=== PATIENT | male | born 1940 | race Caucasian/White ===

== ENCOUNTER 2017-06-01 06:46 | Day surgery (SDC) | payer OTHER ==
[~2017-06-01] VITALS: Ht 177.8 cm; Wt 96.8 kg
[~2017-06-01 06:46] MED LIST: ATOR40TA PO; BUSP10 PO; HYDR-3580 PO; HYDR12.56 PO; MULTCAP14 PO; PRIL20CA PO; TAMS0.4C67 PO
[2017-06-01] MEDS ORDERED: IOHEXOL 180 MG/ML 20 ML VIAL (for RAD DIAG) IT ONE (06:47)
[2017-06-01 07:06] VITALS: BP 154/88; PULSE 75; RESP 20; TEMP 97.7; O2SAT 94
[2017-06-01] MEDS ORDERED: PRIL20TA2 (07:48)
[2017-06-01] MEDS ORDERED: MELO-1 PO (07:48)
[2017-06-01] MEDS ORDERED: FURO20TA PO (07:48)
[2017-06-01] MEDS ORDERED: OMEP20TA PO (07:48)
[2017-06-01] MEDS ORDERED: THERH PO (07:48)
[2017-06-01] MEDS ORDERED: HYDR-2376 PO (07:48)
[2017-06-01] MEDS ORDERED: BUSP5TAB PO (07:48)
[2017-06-01] MEDS ORDERED: TRAM50TA PO (07:48)
[2017-06-01] MEDS ORDERED: TAMS0.4C4 PO (07:48)
[2017-06-01] MEDS ORDERED: METF500T PO (07:48)
[2017-06-01] MEDS ORDERED: GABA300C5 PO (07:48)
[2017-06-01] MEDS ORDERED: ATOR40TA16 PO (07:48)
[2017-06-01] MEDS ORDERED: POTA10CA PO (07:48)
[2017-06-01 07:51] LABS: AUTOMATED NEUTROPHIL # 2.7 TH/MM3 (1.8-7.7); BASOPHIL % 0.5 % (0.0-2.0); EOSINOPHIL # 0.2 TH/MM3 (0-0.4); HEMO FLAGS DIFF FINAL; LYMPHOCYTE # 0.8 TH/MM3 (1.0-4.8); MEAN CELL VOLUME 88.4 FL (80.0-100.0); MEAN CORPUSCULAR HEMOGLOBIN 30.5 PG (27.0-34.0); MEAN CORPUSCULAR HGB CONC 34.5 % (32.0-36.0); NEUT % 66.5 % (16.0-70.0); PLATELET COUNT 223 TH/MM3 (150-450); RED BLOOD COUNT 4.53 MIL/MM3 (4.50-5.90); RED CELL DISTRIBUTION WIDTH 13.4 % (11.6-17.2); WHITE BLOOD COUNT 4.1 TH/MM3 (4.0-11.0)
[2017-06-01 07:59] LABS: APTT (PATIENT) 25.9 SEC (24.3-30.1); PROTHROMBIN TIME - PATIENT 10.5 SEC (9.8-11.6)
[2017-06-01] MEDS ORDERED: LACTATED RINGER'S 1000 ML INJ 1,000 ML IV SCH (08:00)
[2017-06-01] MEDS ORDERED: DIAZEPAM 5 MG TAB PO SCH (08:00)
[2017-06-01 08:24] LABS: BICARBONATE 26.2 MEQ/L (21.0-32.0)
[2017-06-01 08:32] LABS: POTASSIUM 3.9 MEQ/L (3.5-5.1)
--- NOTE | 2017-06-01 09:21 | PD.RAD ---
Post Procedure Progress Note Pre Procedure Diagnosis: (1) Low back pain radiating down leg Post Procedure Diagnosis: (1) Low back pain radiating down leg Procedure Date: Jun 01, 2017 Supervising Radiologist: Asad Reich Estimated blood loss: none Anesthesia: Local Plan of Activity Patient to Unit: [facility] Patient Condition: Good Additional Comments: LP completed Single puncture at L4. Clear CSF returned CT scan pending. Full dictated report to follow in PACS See PACS Report for procedural detail/treatment Asad Reich MD Jun 01, 2017 09:21
[2017-06-01 09:55] VITALS: BP 169/86; PULSE 65; RESP 16; TEMP 97.8; O2SAT 95
--- NOTE | 2017-06-01 10:16 | RADRPT ---
EXAM DATE/TIME: 06/01/2017 09:46 [facility] COMPARISON: No previous studies available for comparison. INDICATIONS : Post-myelogram evaluation of spinal stenosis. RADIATION DOSE: 39.12 CTDIvol (mGy) MEDICAL HISTORY : Cardiovascular disease. Carcinoma, prostate. SURGICAL HISTORY : Pacemaker. ENCOUNTER: Initial ACUITY: 1 day PAIN SCALE: 2/10 LOCATION: lower back. TECHNIQUE: Volumetric scanning of the lumbar spine was performed. Multiplanar reconstructions in the sagittal, coronal and oblique axial planes were performed. Using automated exposure control and adjustment of the mA and/or kV according to patient size, radiation dose was kept as low as reasonably achievable t o obtain optimal diagnostic quality images. DICOM format image data is available electronically for review and comparison. FINDINGS: VERTEBRAE: Normal vertebral body height. ALIGNMENT: No evidence of subluxation. T12-L1: The thecal sac has a normal diameter. No evidence of disc bulge or protrusion. The neural foramina are patent bilaterally. L1-L2: There is a minimal retrolisthesis and a mild disc protrusion. There is mild encroachment on the later al recesses and mild bilateral foraminal stenosis. No significant central canal stenosis. L2-L3: Moderate to severe degenerative disc disease with osteophytic ridging and facet arthropathy. No centr al canal stenosis. Mild lateral recess and foraminal stenosis bilaterally. L3-L4: Broad-based disc protrusion and facet arthropathy results in a severe central canal and lateral reces s stenosis and moderate bilateral foraminal stenosis. L4-L5: Mild disc protrusion and facet arthropathy with moderate central canal stenosis and foraminal stenosi s. L5-S1: Mild disc bulge without significant stenosis. CONCLUSION: 1. At L3-4 there is a broad-based disc protrusion and facet arthropathy with severe central canal and lateral recess stenosis and moderate foraminal stenosis bilaterally. 2. At L4-5 there is a mild disc protrusion and mild to moderate central canal and foraminal stenosis. 3. Moderate to severe degenerative disc disease, especially at L2-3 and L1-2 with minimal retrolisthe sis at these levels. Deshawn Delgado MD on June 01, 2017 at 10:03 Board Certified Radiologist. This report was verified electronically.
[2017-06-01 11:00] VITALS: BP 128/77; PULSE 84; RESP 18; O2SAT 94
--- NOTE | 2017-06-01 12:34 | RADRPT ---
EXAM DATE/TIME: 06/01/2017 09:15 [facility] COMPARISON: CT LUMBAR SPINE W/O CONTRAST, June 01, 2017, 9:46. INDICATIONS : Patient presents with lower back pain in need of lumbar myelogram to assess spinal stenosis. MEDICAL HISTORY : Spinal stenosis GERD Arthritis SURGICAL HISTORY : Pacemaker Right rotator cuff sx Right knee sx ENCOUNTER: Initial ACUITY: > 1 year PAIN SCORE: 10/10 LOCATION: Lower back pain which radiates down right leg. LUMBAR PUNCTURE TIME: 09:09 hours FLUORO TIME: 2.25 minutes IMAGE SERIES: 0 CONTRAST: 20 cc Omnipaque (iohexol) 180 ACCESS LEVEL: L3-4 PROCEDURE : 1. Fluoroscopic guided lumbar puncture. 2. Lumbar myelogram. The risks, benefits and alternatives to the procedure were explained and verbal and written consent w as obtained. The site was prepped in sterile fashion. Full sterile technique was used, including ca p, mask, sterile gloves and gown and a large sterile sheet. Hand hygiene and 2% chlorhexidine and/or betadine/alcohol prep was utilized per protocol for cutaneous antisepsis. The skin and subcutaneous tissues were infiltrated with local anesthetic solution. With fluoroscopic guidance the lumbar thecal sac was punctured at level above and a diagnostic quanti ty of contrast is present in the subarachnoid space. Radiographs were obtained of the lumbar spine. The patient tolerated procedure well and there were no complications. CT scan is to be performed for further evaluation. CONCLUSION: Uncomplicated lumbar myelogram as above. CT scan is to be performed for further evaluation. Asad Reich MD on June 01, 2017 at 12:31 Board Certified Radiologist. This report was verified electronically.
== END 2017-06-01 11:17 | disposition home or self-care (01) ==
LOC: HROP 06:46 → HRIP 06:47 → HROP 11:17
PROVIDERS: ATTEND Radiology Body Imaging
DX: M48.06 Spinal stenosis, lumbar region (principal); M51.26 Other intervertebral disc displacement, lumbar region; I25.10 Atherosclerotic heart disease of native coronary artery without angina pectoris; K21.9 Gastro-esophageal reflux disease without esophagitis; Z95.0 Presence of cardiac pacemaker
CPT/HCPCS: 62304; 72131; 80048; 85025; 85610; 85730; J7120; Q9965

== ENCOUNTER 2017-07-21 04:46 | Observation (INO) | payer MEDICARE, OTHER ==
[2017-07-21] VITALS (14 sets, daily range): BP systolic 102–197; BP diastolic 52–91; PULSE 70–98; RESP 16–24; TEMP 97.8–99.5; O2SAT 95–100
[~2017-07-21] VITALS: Ht 177.8 cm; Wt 99.0 kg
[~2017-07-21 04:46] MED LIST changes: +ADJUSTABLE COMM1 MIS; -ATOR40TA PO; +ATOR40TA16 PO; -BUSP10 PO; +BUSP15TA PO; +FURO20TA PO; +HYDR-2376 PO; -HYDR-3580 PO; +HYDR-3583 PO; -HYDR12.56 PO; +MELO15TA20 PO; +METF500T PO; -MULTCAP14 PO; +OMEP20TA93 PO; +POTA10CA PO; -PRIL20CA PO; +TAMS0.4C4 PO; -TAMS0.4C67 PO; +THERH PO; +WALKER WHEELS/F1 MIS
[2017-07-21] MEDS: LIDOCAINE 2% JELLY 30 ML TUBE TOPICAL ONE ×2 (05:15→06:49)
[2017-07-21] MEDS ORDERED: ONDANSETRON HCL 4 MG/2 ML VIAL IV PUSH ONE (05:30)
[2017-07-21] MEDS ORDERED: HYDROmorphone HCL PF 1 MG/ML VIAL IV PUSH ONE ×2 (05:30→06:30)
[2017-07-21 05:42] LABS: BLOOD, URINE SMALL (NEG); GLUCOSE,URINE 70 mg/dL (NEG); KETONE, URINE 40 mg/dL (NEG); NITRITE,URINE NEG (NEG); PH, URINE 7.5 (5.0-8.5); SQUAMOUS EPITHELIAL CELL URINE <1 /hpf (0-5); URINE COLOR YELLOW (YELLW/STRAW)
[2017-07-21 05:43] LABS: AUTOMATED NEUTROPHIL # 6.3 TH/MM3 (1.8-7.7); BASOPHIL % 0.1 % (0.0-2.0); EOSINOPHIL % 0.4 % (0.0-4.0); HEMATOCRIT 27.8 % (39.0-51.0); HEMO FLAGS DIFF FINAL; LYMPH % 7.7 % (9.0-44.0); LYMPHOCYTE # 0.6 TH/MM3 (1.0-4.8); MEAN CELL VOLUME 88.7 FL (80.0-100.0); MEAN CORPUSCULAR HEMOGLOBIN 31.9 PG (27.0-34.0); MEAN CORPUSCULAR HGB CONC 35.9 % (32.0-36.0); MONO % 8.7 % (0.0-8.0); NEUT % 83.1 % (16.0-70.0); PLATELET COUNT 187 TH/MM3 (150-450); RED BLOOD COUNT 3.14 MIL/MM3 (4.50-5.90); RED CELL DISTRIBUTION WIDTH 13.4 % (11.6-17.2); WHITE BLOOD COUNT 7.6 TH/MM3 (4.0-11.0)
[2017-07-21 05:43] LABS: COMMENT (UR) CULT NOT INDICATED; CULTURE IF INDICATED CULT NOT INDICATED
--- NOTE | 2017-07-21 05:43 | PD ---
HPI Chief Complaint: Complaint Time Seen by Provider: 05:12 Travel History International Travel<30 days: No Contact w/Intl Traveler<30days: No Traveled to known affect area: No History of Present Illness HPI 77-year-old male complains of severe back pain with pain radiation down both legs. Patient has history of low back pain with pain radiation down the legs, lumbar spine instability, lumbar spine stenosis. Patient status post laminectomy L2-3 and L3 4, subtotal for septic resection, posterior lumbar fusion, posterior lateral interbody fusion L2-3, L3 4 and bone graft. Patient has surgery on July 18 and discharged July 20. Patient has been taking hydrocodone 7.5 for pain. Patient states that he started having severe pain to the low back with radiation to both legs since last night. Patient states that he has intermittent urinary retention since last night also. Patient denies any dysuria or frequency. Patient states that the pain radiated to the groin also. Patient denies any fever chills. Patient denies any chest pain or shortness of breath. Patient denies abdominal pain. Patient denies any focal weakness or numbness to lower extremity. Patient states that the pain is worse with movement. On a scale of 1-10 the pain is a 10. PFSH Past Medical History Arthritis: Yes Heart Rhythm Problems: No Cancer: Yes (PROSTATE-radiation only) Cardiovascular Problems: Yes (PACEMAKER MEDTRONIC) High Cholesterol: Yes Chest Pain: No Congestive Heart Failure: No Diabetes: Yes Patient Takes Glucophage: No Endocrine: No Gastrointestinal Disorders: Yes (ACID REFLUX) GERD: Yes Genitourinary: Yes (enlarged prostate) Hepatitis: No Hiatal Hernia: No Immune Disorder: No Musculoskeletal: Yes (ARTHRITIS, spinal stenosis) Neurologic: No Psychiatric: Yes (anxiety) Reproductive: No Respiratory: No Immunizations Current: Yes Radiation Therapy: Yes Thyroid Disease: No ?: Not Past Surgical History Abdominal Surgery: No AICD: No Cardiac Surgery: Yes (PACEMAKER) Ear Surgery: No Endocrine Surgery: No Eye Surgery: No Genitourinary Surgery: No Gynecologic Surgery: No Joint Replacement: Yes (L shoulder) Neurologic Surgery: Yes (LAMINECTOMY) Oral Surgery: Yes (tonsillectomy) Pacemaker: Yes (MEDTRONIC) Thoracic Surgery: No Other Surgery: Yes Social History Alcohol Use: Yes (2 drinks a night) Tobacco Use: No Substance Use: No Allergies-Medications (Allergen,Severity, Reaction): Coded Allergies: No Known Allergies (Verified Allergy, Unknown, 07/21/17) Reported Meds & Prescriptions Reported Meds & Active Scripts Active Hydrocodone-Acetaminophen 10-325 mg Tab 1 Tab PO Q4H PRN 7 Days Adjustable Commode 3-in-1 (Device) 1 Mis Mis Ea .ROUTE DIRECTED Walker with Front Wheels (Device) 1 Mis Mis Ea .ROUTE DIRECTED Reported Buspirone (Buspirone HCl) 15 Mg Tab 15 Mg PO BID Meloxicam 15 Mg Tab 15 Mg PO DAILY Therems-H (Multivitamin Hematinic Therapeutic) 1 Tab 1 Tab PO DAILY Metformin (Metformin HCl) 500 Mg Tab 500 Mg PO TIDPC With meals Furosemide 20 Mg Tab 20 Mg PO DAILY Potassium Chloride ER (Potassium Chloride) 10 Meq Cap 10 Meq PO DAILY Omeprazole 20 Mg Tab 20 Mg PO DAILY Atorvastatin (Atorvastatin Calcium) 40 Mg Tab 40 Mg PO HS Tamsulosin (Tamsulosin HCl) 0.4 Mg Cap 0.4 Mg PO BID Review of Systems General / Constitutional: No: Fever Eyes: No: Visual changes HENT: No: Headaches Cardiovascular: No: Chest Pain or Discomfort Respiratory: No: Shortness of Breath Gastrointestinal: No: Abdominal Pain Genitourinary: No: Dysuria Musculoskeletal: No: Pain Skin: No Rash Neurologic: No: Weakness Psychiatric: No: Depression Endocrine: No: Polydipsia Hematologic/Lymphatic: No: Easy Bruising Physical Exam Narrative GENERAL: Well-nourished, well-developed patient. SKIN: Focused skin assessment warm/dry. HEAD: Normocephalic. EYES: No scleral icterus. No injection or drainage. NECK: Supple, trachea midline. No JVD or lymphadenopathy. CARDIOVASCULAR: Regular rate and rhythm without murmurs, gallops, or rubs. RESPIRATORY: Breath sounds equal bilaterally. No accessory muscle use. GASTROINTESTINAL: Abdomen soft, non-tender, nondistended. MUSCULOSKELETAL: No cyanosis, or edema. BACK: Moderate tenderness on palpation lumbar area, without obvious deformity. No CVA tenderness. Sutures in place. The wound is without bleeding. Neurologic exam: Patient can move all extremity well. Patient has increasing low back pain with flexion of both hips. Data Data Last Documented VS Vital Signs Date Time Temp Pulse Resp B/P (MAP) Pulse Ox O2 Delivery O2 Flow Rate FiO2 07/21/17 07:02 70 20 178/82 (114) 99 Room Air 07/21/17 04:48 97.8 Orders Orders Urinary Catheter Insert/Apply (07/21/17 05:13) Lidocaine 2% Jelly (Xylocaine 2% Jelly) (07/21/17 05:15) Hydromorphone Pf Inj (Dilaudid Pf Inj) (07/21/17 05:30) Ondansetron Inj (Zofran Inj) (07/21/17 05:30) Complete Blood Count With Diff (07/21/17 05:26) Basic Metabolic Panel (Bmp) (07/21/17 05:26) Prothrombin Time / Inr (Pt) (07/21/17 05:26) Urinalysis - C+S If Indicated (07/21/17 05:26) Thyroid Stimulating Hormone (07/21/17 05:26) Iv Access Insert/Monitor (07/21/17 05:26) Ecg Monitoring (07/21/17 05:26) Oximetry (07/21/17 05:26) Hydromorphone Pf Inj (Dilaudid Pf Inj) (07/21/17 06:30) Potassium Chloride (Kcl) (07/21/17 07:00) Potassium Chlor 20 Meq Premix (Kcl 20 Me (07/21/17 07:00) Admit Order (Ed Use Only) (07/21/17 07:19) Labs Laboratory Tests Test 07/21/17 05:10 07/21/17 05:20 Urine Color YELLOW Urine Turbidity CLEAR Urine pH 7.5 Urine Specific [place] 1.011 Urine Protein TRACE mg/dL Urine Glucose (UA) 70 mg/dL Urine Ketones 40 mg/dL Urine Occult Blood SMALL Urine Nitrite NEG Urine Bilirubin NEG Urine Urobilinogen LESS THAN 2.0 MG/DL Urine Leukocyte Esterase NEG Urine RBC 35 /hpf Urine WBC 1 /hpf Urine Squamous Epithelial Cells <1 /hpf Microscopic Urinalysis Comment CULT NOT INDICATED White Blood Count 7.6 TH/MM3 Red Blood Count 3.14 MIL/MM3 Hemoglobin 10.0 GM/DL Hematocrit 27.8 % Mean Corpuscular Volume 88.7 FL Mean Corpuscular Hemoglobin 31.9 PG Mean Corpuscular Hemoglobin Concent 35.9 % Red Cell Distribution Width 13.4 % Platelet Count 187 TH/MM3 Mean Platelet Volume 7.2 FL Neutrophils (%) (Auto) 83.1 % Lymphocytes (%) (Auto) 7.7 % Monocytes (%) (Auto) 8.7 % Eosinophils (%) (Auto) 0.4 % Basophils (%) (Auto) 0.1 % Neutrophils # (Auto) 6.3 TH/MM3 Lymphocytes # (Auto) 0.6 TH/MM3 Monocytes # (Auto) 0.7 TH/MM3 Eosinophils # (Auto) 0.0 TH/MM3 Basophils # (Auto) 0.0 TH/MM3 CBC Comment DIFF FINAL Differential Comment Prothrombin Time 10.4 SEC Prothromb Time International Ratio 0.9 RATIO Blood Urea Nitrogen 8 MG/DL Creatinine 0.68 MG/DL Random Glucose 139 MG/DL Calcium Level 8.1 MG/DL Sodium Level 136 MEQ/L Potassium Level 2.9 MEQ/L Chloride Level 101 MEQ/L Carbon Dioxide Level 25.1 MEQ/L Anion Gap 10 MEQ/L Estimat Glomerular Filtration Rate 112 ML/MIN Thyroid Stimulating Hormone 3rd Gen 1.190 uIU/ML MDM Medical Decision Making Medical Screen Exam Complete: Yes Emergency Medical Condition: Yes Interpretation(s) 6:42 AM. CBC WBC 7.6. Hemoglobin 10.0, hematocrit 27.8. 83 neutrophil. Potassium 2.9. Differential Diagnosis Differential diagnosis including acute exacerbation of back pain status post back surgery. Narrative Course 77-year-old male with acute exacerbation of low back pain radiation to legs. Status post laminectomy. Dilaudid 1 mg IV. Zofran 4 mg IV. Bladder scan done and shows urine volume around 140 cc. Romero catheter inserted. Repeated Dilaudid 1 mg IV. KCl 40 mEq by mouth given. KCl 20 mEq IV given. Diagnosis Primary Impression: Intractable back pain Additional Impressions: Urinary retention Status post laminectomy Admitting Information Admitting Physician Requests: Observation Jamin Eduardo MD Jul 21, 2017 05:43
[2017-07-21 05:47] LABS: INTERNATIONAL NORMALIZED RATIO 0.9 RATIO; PROTHROMBIN TIME - PATIENT 10.4 SEC (9.8-11.6)
[2017-07-21 06:22] LABS: BICARBONATE 25.1 MEQ/L (21.0-32.0); POTASSIUM 2.9 MEQ/L (3.5-5.1)
[2017-07-21] MEDS ORDERED: POTASSIUM CHLOR 20 MEQ PREMIX 100 ML IV ONE (07:00)
[2017-07-21] MEDS ORDERED: POTASSIUM CHLORIDE 20 MEQ CONTROLLED RELEASE TAB PO ONE (07:00)
[2017-07-21] MEDS ORDERED: ENALAPRILAT 1.25 MG/ML VIAL IV PUSH PRN (07:45)
[2017-07-21] MEDS ORDERED: BISACODYL 10 MG SUPP RECTAL PRN (07:45)
[2017-07-21] MEDS ORDERED: MORPHINE SULFATE 4 MG/ML INJ IV PUSH PRN (07:45)
[2017-07-21] MEDS ORDERED: MAGNESIUM HYDROXIDE SUSP 30 ML CUP PO PRN (07:45)
[2017-07-21] MEDS ORDERED: SENNOSIDES 8.6 MG TAB PO PRN (07:45)
[2017-07-21] MEDS ORDERED: NALOXONE HCL 0.4 MG/ML AMP IV PUSH PRN (07:45)
[2017-07-21] MEDS ORDERED: hydrALAZINE HCL 20 MG/ML VIAL IV PUSH ONE (07:45)
[2017-07-21] MEDS ORDERED: ONDANSETRON HCL 4 MG/2 ML VIAL IVP PRN ×2 (07:45)
[2017-07-21] MEDS ORDERED: ACETAMINOPHEN 325 MG TAB PO PRN ×2 (07:45)
[2017-07-21] MEDS ORDERED: cloNIDine HCL 0.1 MG TAB PO PRN (07:45)
[2017-07-21] MEDS ORDERED: ACETAMINOPHEN/HYDROcodone 325 MG/7.5 MG TAB PO PRN (07:45)
[2017-07-21] MEDS ORDERED: DEXTROSE 50% IN WATER 50 ML VIAL(D50) IV PUSH PRN (08:00)
[2017-07-21] MEDS ORDERED: GLUCAGON 1 MG/ML VIAL OTHER PRN (08:00)
[2017-07-21] MEDS: INSULIN ASPART SUPPLEMENTAL SCALE SQ SCH ×4 (08:00→21:56)
[2017-07-21] MEDS: HYDROmorphone HCL PF 1 MG/ML VIAL IV PUSH PRN ×4 (08:07→21:06)
[2017-07-21] MEDS ORDERED: LORazepam 1 MG TAB PO PRN (08:15)
[2017-07-21] MEDS ORDERED: FLUMAZENIL 0.5 MG/5 ML VIAL IV PUSH PRN (08:15)
[2017-07-21] MEDS ORDERED: LORazepam 2 MG/ML VIAL IV PUSH PRN ×4 (08:15)
[2017-07-21] MEDS ORDERED: LORazepam 2 MG TAB PO PRN (08:15)
[2017-07-21] MEDS: busPIRone HCL 5 MG TAB PO SCH ×2 (08:25→21:53)
[2017-07-21] MEDS: FUROSEMIDE 20 MG TAB PO SCH (08:26)
[2017-07-21] MEDS: DOCUSATE SODIUM 50 MG/SENNA 8.6 MG TAB PO SCH ×2 (08:33→21:17)
[2017-07-21] MEDS: PANTOPRAZOLE SOD 20 MG DELAYED RELEASE TAB PO SCH (08:33)
[2017-07-21] MEDS: FOLIC ACID 1 MG TAB PO SCH (09:23)
[2017-07-21] MEDS: TAMSULOSIN HCL 0.4 MG CAP PO SCH ×2 (09:23→21:16)
[2017-07-21] MEDS: SODIUM CHLORIDE 0.9% FLUSH 10 ML FLUSH IV FLUSH SCH ×2 (09:23→21:15)
[2017-07-21] MEDS: MULTIVITAMIN HEMATINIC THERAPEUTIC TAB PO SCH (09:23)
[2017-07-21] MEDS: THIAMINE HCL 100 MG TAB PO SCH (09:24)
[2017-07-21] MEDS: MULTIVITAMINS/MINERALS THERAPEUTIC TAB PO SCH (09:24)
[2017-07-21] MEDS: metFORMIN HCL 500 MG TAB PO SCH ×3 (09:25→17:13)
[2017-07-21] MEDS: HALOPERIDOL LACTATE 5 MG/ML AMP IM PRN ×2 (09:39→09:56)
[2017-07-21] MEDS: POTASSIUM CHLORIDE 10 MEQ CAP PO SCH (10:06)
[2017-07-21] MEDS: oxyCODONE/ACETAMINOPHEN 10 MG/325 MG TAB PO PRN ×3 (12:45→21:54)
--- NOTE | 2017-07-21 14:04 | HHI.HP ---
[facility] Service [facility] Primary Care Physician Eduardo Coffey MD Admission Diagnosis intractable back pain. Status post laminectomy Diagnoses: Chief Complaint: back pain Travel History International Travel<30 Days: No Contact w/Intl Traveler <30 Da: No Traveled to Known Affected Are: No History of Present Illness Written by Marissa Keenan, acting as scribe for Dr. Gamez on 07/21/17 at 13: 58. This note was transcribed by scribe Marissa Keenan. I, Dr. Justin Gamez personally performed the history, physical exam, and medical decision making; and confirmed the accuracy of the information in the transcribed note. Authenticated by Dr. Justin Gamez on 07/21/17 at 14:05. 77-year-old male with history of chronic back pain, high grade spinal stenosis at L2-3, diabetes mellitus, hypertension, hyperlipidemia, bradycardia s/p pacemaker, prostate cancer s/p radiation, melanoma, presents with a 2 day history of intractable low back pain. The patient recently underwent lumbar laminectomy and fusion of L2-3 and L3-4 on 07/18/[address] Kirit Marti. He was discharged yesterday 07/20, however presented back to the ED today 07/21 with intractable back pain. He locates the pain diffusely across lower back, with radiation down bilateral legs to the thighs and down to the knees. He describes the pain as intermittent waves of "nerves pains". He denies any saddle anesthesia although does report difficulty urinating and had a brief episode of dysuria. He took 3-4 doses of his prescribed [place] with no relief. He states the pain is similar to the pain prior to the surgery. He denies any other medical complaints including no chest pain, palpitations, shortness of breath, or abdominal pain. He denies any significant drainage from the surgical site. Currently the patient is seen in CDU with his [id number] and granddaughter at bedside. He has received multiple pain medications including IV dilaudid and po percocet, and now rates his pain 11/18. He has not yet ambulated today. He reports some constipation; his last bowel movement was on 07/18/17. He was seen by PT on previous admission, was able to ambulate 120 feet with rolling walker, recommended [facility] PT. Review of Systems Except as stated in HPI: all other systems reviewed are Neg Past Family Social History Past Medical History Chronic back pain Lumbar Spinal stenosis Osteoarthritis Diabetes mellitus Hypertension Hyperlipidemia Prostate cancer s/p radiation Melanoma GERD Bradycardia s/p pacemaker Past Surgical History 07/18/17 - lumbar laminectomy from the right L2, L3 with lateral recess decompression and subtotal facet resection L2-3 right; lateral lumbar laminectomy from the right L3, L4 with bilateral lateral recess decompression and subtotal facet resection from the right; Posterior spinal fusion L 2-4; Posterior spinal segmental instrumentation, L2-4; Posterior lateral interbody fusion, L2-3 and L3 4; Placement of interbody cages L2-3 and L3-4; Major bone grafting of the lumbar spine. Shoulder surgery Right knee surgery Pacemaker placement - [employer]tr[employer] Tonsillectomy Reported Medications Hydrocodone-Acetaminophen 10-325 mg Tab 1 Tab PO Q4H PRN 7 Days Adjustable Commode 3-in-1 (Device) 1 Mis Mis Ea .ROUTE DIRECTED Walker with Front Wheels (Device) 1 Mis Mis Ea .ROUTE DIRECTED Buspirone (Buspirone HCl) 15 Mg Tab 15 Mg PO BID Meloxicam 15 Mg Tab 15 Mg PO DAILY Therems-H (Multivitamin Hematinic Therapeutic) 1 Tab 1 Tab PO DAILY Metformin (Metformin HCl) 500 Mg Tab 500 Mg PO TIDPC With meals Furosemide 20 Mg Tab 20 Mg PO DAILY Potassium Chloride ER (Potassium Chloride) 10 Meq Cap 10 Meq PO DAILY Omeprazole 20 Mg Tab 20 Mg PO DAILY Atorvastatin (Atorvastatin Calcium) 40 Mg Tab 40 Mg PO HS Tamsulosin (Tamsulosin HCl) 0.4 Mg Cap 0.4 Mg PO BID Allergies: Coded Allergies: lorazepam (Verified Adverse Reaction, Intermediate, Irritability/Anxiety, 07/21/17) Active Ordered Medications Current Medications Medications (Trade) Dose Ordered Sig/Ryley Route Start Time Stop Time Status Last Admin (Zofran Inj) 4 mg Q6H PRN IVP 07/21/17 07:45 07/21/17 08:07 (Narcan Inj) 0.4 mg UNSCH PRN IV PUSH 07/21/17 07:45 (Antionette-Colace) 1 tab BID PO 07/21/17 09:00 07/21/17 08:33 (Milk Of Magnmoody Liq) 30 ml Q12H PRN PO 07/21/17 07:45 (Senokot) 17.2 mg Q12H PRN PO 07/21/17 07:45 (Dulcolax Supp) 10 mg DAILY PRN RECTAL 07/21/17 07:45 (Vasotec Inj) 1.25 mg Q6H PRN IV PUSH 07/21/17 07:45 (Catapres) 0.1 mg Q6H PRN PO 07/21/17 07:45 (NS Flush) 2 ml UNSCH PRN IV FLUSH 07/21/17 07:45 (NS Flush) 2 ml BID IV FLUSH 07/21/17 09:00 07/21/17 09:23 (Tylenol) 650 mg Q4H PRN PO 07/21/17 07:45 (Roxicodone) 5 mg Q4H PRN PO 07/21/17 07:45 07/21/17 08:27 (Percocet 5-325 Mg) 1 tab Q4HR PRN PO 07/21/17 07:45 (Percocet 10-325 Mg) 1 tab Q4HR PRN PO 07/21/17 07:45 07/21/17 12:45 (Dilaudid Pf Inj) 1 mg Q3H PRN IV PUSH 07/21/17 08:00 07/21/17 12:46 (Roxicodone) 5 mg Q4H PRN PO 07/21/17 07:45 (Lipitor) 40 mg HS PO 07/21/17 21:00 (Buspar) 15 mg BID PO 07/21/17 09:00 07/21/17 08:25 (Lasix) 20 mg DAILY PO 07/21/17 09:00 07/21/17 08:26 (Glucophage) 500 mg TIDPC PO 07/21/17 09:30 07/21/17 12:56 (Theragran Hematinic) 1 tab DAILY PO 07/21/17 09:00 07/21/17 09:23 (KCl) 20 meq DAILY PO 07/21/17 09:00 07/21/17 10:06 (Flomax) 0.4 mg BID PO 07/21/17 09:00 07/21/17 09:23 (Protonix) 20 mg DAILY PO 07/21/17 09:00 07/21/17 08:33 (D50w (Vial) Inj) 50 ml UNSCH PRN IV PUSH 07/21/17 08:00 (Glucagon Inj) 1 mg UNSCH PRN OTHER 07/21/17 08:00 (NovoLOG SUPPLEMENTAL SCALE) 1 ACHS SLIDING SCALE SQ 07/21/17 08:00 (Folate) 1 mg DAILY PO 07/21/17 09:00 07/26/17 08:59 07/21/17 09:23 (Vitamin B1) 100 mg DAILY PO 07/21/17 09:00 07/21/17 09:24 (Theragran M Tab) 1 tab DAILY PO 07/21/17 09:00 07/26/17 08:59 07/21/17 09:24 (Romazicon Inj) 0.2 mg Q1M PRN IV PUSH 07/21/17 08:15 (Ativan) 1 mg Q4H PRN PO 07/21/17 08:15 (Ativan Inj) 1 mg Q4H PRN IV PUSH 07/21/17 08:15 (Ativan) 2 mg Q2H PRN PO 07/21/17 08:15 (Ativan Inj) 2 mg Q2H PRN IV PUSH 07/21/17 08:15 (Ativan Inj) 2 mg Q1H PRN IV PUSH 07/21/17 08:15 (Ativan Inj) 2 mg Q15M PRN IV PUSH 07/21/17 08:15 (Haldol Inj) 2 mg Q15M PRN IM 07/21/17 08:15 07/21/17 09:39 Family History Father with stroke at age 51 Denies any other significant family medical problems including heart disease, diabetes, or cancer. Social History Drinks alcohol 3 bourbon or vodka beverages daily; last drink 1 week ago Denies any tobacco use Denies any illicit drug use Physical Exam Vital Signs Vital Signs Date Time Temp Pulse Resp B/P (MAP) Pulse Ox O2 Delivery O2 Flow Rate FiO2 07/21/17 12:23 98.4 98 24 176/91 (119) 100 07/21/17 10:50 99.0 93 24 156/65 (95) 95 07/21/17 10:33 07/21/17 10:17 99.3 94 20 168/74 (105) 97 Nasal Cannula 2.00 07/21/17 10:06 99.5 92 20 183/77 (112) 98 Nasal Cannula 2.00 07/21/17 09:24 20 07/21/17 08:37 76 16 184/81 (115) 99 07/21/17 08:35 100 21 07/21/17 08:30 20 07/21/17 08:08 72 20 157/72 (100) 99 Room Air 07/21/17 07:02 70 20 178/82 (114) 99 Room Air 07/21/17 05:09 74 24 197/85 (122) 98 Room Air 07/21/17 04:48 97.8 78 20 177/82 (113) 96 Room Air Physical Exam GENERAL: Well-nourished, well-developed pleasant elderly male patient in [facility]. SKIN: Warm and dry. No rash. HEAD: Normocephalic. Atraumatic. EYES: Pupils equal and round. No scleral icterus. No injection or drainage. ENT: No nasal bleeding or discharge. Mucous membranes pink and moist. NECK: Supple. Trachea midline. CARDIOVASCULAR: Regular rate and rhythm. S1, S2 noted. No murmur appreciated. RESPIRATORY: No accessory muscle use. Clear to auscultation. Breath sounds equal bilaterally. GASTROINTESTINAL: Abdomen soft, non-tender, nondistended. Normoactive bowel sounds x4. MUSCULOSKELETAL: No obvious deformities. Extremities without clubbing, cyanosis , or edema. Lumbar surgical site clean with sutures and steri-strips, dressing CDI. NEUROLOGICAL: Awake and alert. No obvious cranial nerve deficits. Motor grossly within normal limits. Moving all extremities spontaneously. Normal speech. PSYCHIATRIC: Appropriate mood and affect; insight and judgment normal. Laboratory Laboratory Tests Test 07/21/17 05:10 07/21/17 05:20 Urine Color YELLOW Urine Turbidity CLEAR Urine pH 7.5 Urine Specific [place] 1.011 Urine Protein TRACE Urine Glucose (UA) 70 Urine Ketones 40 Urine Occult Blood SMALL Urine Nitrite NEG Urine Bilirubin NEG Urine Urobilinogen LESS THAN 2.0 Urine Leukocyte Esterase NEG Urine RBC 35 Urine WBC 1 Urine Squamous Epithelial Cells <1 Microscopic Urinalysis Comment CULT NOT INDICATED White Blood Count 7.6 Red Blood Count 3.14 Hemoglobin 10.0 Hematocrit 27.8 Mean Corpuscular Volume 88.7 Mean Corpuscular Hemoglobin 31.9 Mean Corpuscular Hemoglobin Concent 35.9 Red Cell Distribution Width 13.4 Platelet Count 187 Mean Platelet Volume 7.2 Neutrophils (%) (Auto) 83.1 Lymphocytes (%) (Auto) 7.7 Monocytes (%) (Auto) 8.7 Eosinophils (%) (Auto) 0.4 Basophils (%) (Auto) 0.1 Neutrophils # (Auto) 6.3 Lymphocytes # (Auto) 0.6 Monocytes # (Auto) 0.7 Eosinophils # (Auto) 0.0 Basophils # (Auto) 0.0 CBC Comment DIFF FINAL Differential Comment Prothrombin Time 10.4 Prothromb Time International Ratio 0.9 Blood Urea Nitrogen 8 Creatinine 0.68 Random Glucose 139 Calcium Level 8.1 Sodium Level 136 Potassium Level 2.9 Chloride Level 101 Carbon Dioxide Level 25.1 Anion Gap 10 Estimat Glomerular Filtration Rate 112 Magnesium Level 1.7 Thyroid Stimulating Hormone 3rd Gen 1.190 Result Diagram: 07/21/1751907/21/17519 Caprini VTE Risk Assessment Caprini VTE Risk Assessment: Mod/High Risk (score >= 2) Caprini Risk Assessment Model Point Value = 1 Point Value = 2 Point Value = 3 Point Value = 5 Age 41-60 Minor surgery BMI > 25 kg/m2 Swollen legs Varicose veins or History of unexplained or recurrent spontaneous Oral contraceptives or hormone replacement Sepsis (< 1 month) Serious lung disease, including pneumonia (< 1 month) Abnormal pulmonary function Acute myocardial infarction Congestive heart failure (< 1 month) History of inflammatory bowel disease Medical patient at bed rest Age 61-74 Arthroscopic surgery Major open surgery (> 45 min) Laparoscopic surgery (> 45 min) Malignancy Confined to bed (> 72 hours) Immobilizing plaster cast Central venous access Age >= 75 History of VTE Family history of VTE Factor V Leiden Prothrombin [id number] Lupus anticoagulant Anticardiolipin antibodies Elevated serum homocysteine Heparin-induced thrombocytopenia Other congenital or acquired thrombophilia Stroke (< 1 month) Elective arthroplasty Hip, pelvis, or leg fracture Acute spinal cord injury (< 1 month) Prophylaxis Regimen Total Risk Factor Score Risk Level Prophylaxis Regimen 0-1 Low Early ambulation 2 Moderate Order ONE of the following: *Sequential Compression Device (SCD) *Heparin 5000 units SQ BID 3-4 Higher Order ONE of the following medications: *Heparin 5000 units SQ TID *Enoxaparin/Lovenox 40 mg SQ daily (WT < 150 kg, CrCl > 30 mL/min) *Enoxaparin/Lovenox 30 mg SQ daily (WT < 150 kg, CrCl > 10-29 mL/min) *Enoxaparin/Lovenox 30 mg SQ BID (WT < 150 kg, CrCl > 30 mL/min) AND/OR *Sequential Compression Device (SCD) 5 or more Highest Order ONE of the following medications: *Heparin 5000 units SQ TID (Preferred with Epidurals) *Enoxaparin/Lovenox 40 mg SQ daily (WT < 150 kg, CrCl > 30 mL/min) *Enoxaparin/Lovenox 30 mg SQ daily (WT < 150 kg, CrCl > 10-29 mL/min) *Enoxaparin/Lovenox 30 mg SQ BID (WT < 150 kg, CrCl > 30 mL/min) AND *Sequential Compression Device (SCD) Assessment and Plan Problem List: (1) Intractable back pain ICD Code: M54.9 - Dorsalgia, unspecified Status: Acute (2) Urinary retention ICD Code: R33.9 - Retention of urine, unspecified Status: Acute (3) Status post laminectomy ICD Code: Z98.890 - Other specified postprocedural states Status: Acute (4) Hypokalemia ICD Code: E87.6 - Hypokalemia Status: Acute Assessment and Plan 77-year-old male with history of chronic back pain, high grade spinal stenosis at L2-3, diabetes mellitus, hypertension, hyperlipidemia, bradycardia s/p pacemaker, prostate cancer s/p radiation, melanoma, presents with a 2 day history of intractable low back pain. The patient recently admitted 07/18-07/20, underwent lumbar laminectomy and fusion of L2-3 and L3-4 on 07/18/[address] Kirit Marti. He was discharged yesterday 07/20, however presented back to the ED today 07/21 with intractable back pain. Intractable Low Back Pain w/Radiculopathy: Failed Outpatient. S/p lumbar laminectomy/fusion on 07/18. Discharged on norco however pain uncontrolled. No new injury/fall. -Consult orthopedics -Continue pain control with Percocet prn and IV dilaudid prn breakthrough pain -Consult PT -Monitor neuro checks Urinary Retention: patient unable to urinate upon arrival, suspect secondary to intractable pain, Contreras placed in the ED. -instructed RN to discontinue contreras when patient is able to ambulate OOB -monitor output Hypokalemia: K 2.9 upon arrival, suspect secondary to patient's diuretics -given po and IV KCl replacement -repeat BMP -increased patient's KCl dosing to 20meq daily Constipation: patient reports no BM since 07/18 -continue antionette-colace 1tab po bid -give Miralax x1 now -monitor for BM -constipation protocol meds prn Diabetes Mellitus: chronic, stable -continue patient's metformin HTN/HLD: chronic -continue patient's statin and lasix -monitor BP, adjust antihypertensives as needed GERD: chronic -continue patient's PPI Alcohol Use: chronic, last drink 1 week ago, does not appear to be in withdrawal -counseled on cessation -[facility] protocol -continue thiamine/folate/MV DVT Prophylaxis: teds/SCDs Discussed Condition With Patient, RN, [id number], Granddaughter Marissa Keenan PA-C Jul 21, 2017 14:04 Justin Gamez MD Jul 21, 2017 14:05
[2017-07-21] MEDS ORDERED: POLYETHYLENE GLYCOL 17 GM PKG PO ONE (16:30)
--- NOTE | 2017-07-21 18:27 | PD.ORT.PN ---
Subjective Post Op Day #: 3 Pain Scale: 8 Subjective Remarks The patient presented emergency department this morning with persistent and increasing pain primarily in his low back but also in the bilateral lower extremities worse on the right. He states it feels like "nerve pain". It was similar as when he left the hospital. He denies numbness, tingling or weakness. He has had urinary retention and currently has a catheter. He has also had constipation. The patient has been on IV Dilaudid but states only temporarily helps his pain. He was admitted for intractable pain with orthopedic evaluation requested and I am seeing the patient and Dr. Marti's absence. Objective Vitals Vital Signs Date Time Temp Pulse Resp B/P (MAP) Pulse Ox O2 Delivery O2 Flow Rate FiO2 07/21/17 17:43 18 07/21/17 15:56 98.5 83 20 102/52 (69) 97 07/21/17 13:45 18 07/21/17 12:23 98.4 98 24 176/91 (119) 100 07/21/17 10:50 99.0 93 24 156/65 (95) 95 07/21/17 10:33 07/21/17 10:17 99.3 94 20 168/74 (105) 97 Nasal Cannula 2.00 07/21/17 10:06 99.5 92 20 183/77 (112) 98 Nasal Cannula 2.00 07/21/17 09:24 20 07/21/17 08:37 76 16 184/81 (115) 99 07/21/17 08:35 100 21 07/21/17 08:08 72 20 157/72 (100) 99 Room Air 07/21/17 07:02 70 20 178/82 (114) 99 Room Air 07/21/17 05:09 74 24 197/85 (122) 98 Room Air 07/21/17 04:48 97.8 78 20 177/82 (113) 96 Room Air I/O 07/20/17 07/20/17 07/20/17 07/21/17 07/21/17 07/21/17 07:00 15:00 23:00 07:00 15:00 23:00 Intake Total 400 ml Output Total 650 ml 2000 ml Balance -650 ml 400 ml -2000 ml Intake Oral 300 ml IV Total 100 ml Output Urine Total 650 ml 2000 ml # Voids 1 Result Diagram: 07/21/1751907/21/17519 Other Results Laboratory Tests Test 07/21/17 05:20 Prothromb Time International Ratio 0.9 RATIO Prothrombin Time 10.4 SEC (9.8-11.6) Objective Remarks The patient is awake and alert and answers questions appropriately. His family is at the bedside. His exam is limited secondary to pain and immobility. A Romero catheter is in place. He is able to move his lower extremities freely with some discomfort. He has 5 out of 5 motor strength distally and no sensory deficit. Assessment & Plan Ortho Post Op Day #: 3 Problem List: Assessment and Plan The findings were discussed with the patient and his family. Will try to adjust his medications for comfort. Progress mobilization to tolerance with physical therapy. We will attempt to contact Dr. Marti. Dr. Ram available over weekend. Amol Low MD Jul 21, 2017 18:27
[2017-07-21] MEDS ORDERED: DEXAMETHASONE SOD PHOS 4 MG/ML VIAL IV PUSH ONE (19:45)
[2017-07-21] MEDS ORDERED: ATORVASTATIN 40 MG TAB PO SCH (21:00)
[2017-07-21] MEDS: GABAPENTIN 300 MG CAP PO SCH (21:15)
[2017-07-22] VITALS (10 sets, daily range): BP systolic 135–173; BP diastolic 63–84; PULSE 69–92; RESP 18; TEMP 97.6–98.4; O2SAT 95–97
[2017-07-22] MEDS: DEXAMETHASONE SOD PHOS 4 MG/ML VIAL IV PUSH SCH ×3 (00:54→12:04)
[2017-07-22] MEDS: oxyCODONE/ACETAMINOPHEN 5 MG/325 MG TAB PO PRN ×3 (04:40→17:00)
[2017-07-22] MEDS: HYDROmorphone HCL PF 1 MG/ML VIAL IV PUSH PRN (05:50)
[2017-07-22 09:23] LABS: BASOPHIL % 0.1 % (0.0-2.0); HEMO FLAGS DIFF FINAL; LYMPH % 7.1 % (9.0-44.0); LYMPHOCYTE # 0.4 TH/MM3 (1.0-4.8); MEAN CELL VOLUME 89.4 FL (80.0-100.0); MEAN CORPUSCULAR HEMOGLOBIN 31.1 PG (27.0-34.0); MEAN CORPUSCULAR HGB CONC 34.8 % (32.0-36.0); MONO % 6.5 % (0.0-8.0); NEUT % 86.3 % (16.0-70.0); PLATELET COUNT 243 TH/MM3 (150-450); RED BLOOD COUNT 3.36 MIL/MM3 (4.50-5.90); RED CELL DISTRIBUTION WIDTH 13.4 % (11.6-17.2); WHITE BLOOD COUNT 5.8 TH/MM3 (4.0-11.0)
[2017-07-22 09:45] LABS: BICARBONATE 25.1 MEQ/L (21.0-32.0); POTASSIUM 3.3 MEQ/L (3.5-5.1)
[2017-07-22] MEDS: GABAPENTIN 300 MG CAP PO SCH (10:05)
[2017-07-22] MEDS: busPIRone HCL 5 MG TAB PO SCH (10:05)
[2017-07-22] MEDS: MULTIVITAMIN HEMATINIC THERAPEUTIC TAB PO SCH (10:05)
[2017-07-22] MEDS: POTASSIUM CHLORIDE 10 MEQ CAP PO SCH (10:05)
[2017-07-22] MEDS: PANTOPRAZOLE SOD 20 MG DELAYED RELEASE TAB PO SCH (10:06)
[2017-07-22] MEDS: THIAMINE HCL 100 MG TAB PO SCH (10:06)
[2017-07-22] MEDS: DOCUSATE SODIUM 50 MG/SENNA 8.6 MG TAB PO SCH (10:06)
[2017-07-22] MEDS: FUROSEMIDE 20 MG TAB PO SCH (10:06)
[2017-07-22] MEDS: MULTIVITAMINS/MINERALS THERAPEUTIC TAB PO SCH (10:06)
[2017-07-22] MEDS: FOLIC ACID 1 MG TAB PO SCH (10:06)
[2017-07-22] MEDS: TAMSULOSIN HCL 0.4 MG CAP PO SCH (10:06)
[2017-07-22] MEDS: metFORMIN HCL 500 MG TAB PO SCH ×2 (10:06→13:13)
[2017-07-22] MEDS: SODIUM CHLORIDE 0.9% FLUSH 10 ML FLUSH IV FLUSH SCH (10:07)
[2017-07-22] MEDS: INSULIN ASPART SUPPLEMENTAL SCALE SQ SCH ×3 (10:08→17:00)
[2017-07-22] MEDS: SODIUM CHLORIDE 0.9% FLUSH 10 ML FLUSH IV FLUSH PRN ×2 (12:05→13:13)
--- NOTE | 2017-07-22 12:10 | PD.ORT.PN ---
Subjective Subjective Remarks Pain under control No BM yet Objective Vitals Vital Signs Date Time Temp Pulse Resp B/P (MAP) Pulse Ox O2 Delivery O2 Flow Rate FiO2 07/22/17 07:25 98.1 71 18 143/65 (91) 97 07/22/17 04:04 173/84 (113) 07/22/17 04:00 80 07/22/17 03:59 98.3 83 18 167/80 (109) 96 07/22/17 01:55 98.4 69 18 135/63 (87) 95 07/22/17 01:01 70 07/21/17 20:42 97 21 07/21/17 20:04 92 07/21/17 19:53 98.0 89 18 138/65 (89) 96 07/21/17 18:56 18 07/21/17 17:43 18 07/21/17 15:56 98.5 83 20 102/52 (69) 97 07/21/17 12:23 98.4 98 24 176/91 (119) 100 I/O 07/21/17 07/21/17 07/21/17 07/22/17 07/22/17 07/22/17 07:00 15:00 23:00 07:00 15:00 23:00 Intake Total 400 ml 500 ml Output Total 650 ml 2000 ml Balance -650 ml 400 ml -2000 ml 500 ml Intake Oral 300 ml 500 ml IV Total 100 ml Output Urine Total 650 ml 2000 ml # Voids 1 Result Diagram: 07/22/17 0750 07/22/17 0750 Objective Remarks Ambulating with family using walker Lower extremity neuro intact Incision benign per medical staff coordinator Assessment & Plan Ortho Post Op Day #: 4 (Lumbar decompression) Problem List: Assessment and Plan Improved with current management by Dr. Gamez Once patient has BM, then ok to D/C home Scripts written Percocet 10/325 Q 4 hour prn pain. Precautions reviewed. Neurotin 300 BID Prednisone 10mg daily for 5 days F/U with Dr. Marti's scheduled Reymundo Ram MD Jul 22, 2017 12:10
[2017-07-22] MEDS ORDERED: HYDROmorphone HCL PF 1 MG/ML VIAL IV PUSH ONE (13:05)
--- NOTE | 2017-07-22 13:19 | HHI.PR ---
Subjective Remarks Follow-up lower back pain. States pain is much improved he has been ambulating with a back brace. Romero catheter has been discontinued this morning and has not voided. Still no BM. Denies nausea and abdominal pain. Discussed with RN , patient will be discharged home after voiding and stooling. Objective Vitals Vital Signs Date Time Temp Pulse Resp B/P (MAP) Pulse Ox O2 Delivery O2 Flow Rate FiO2 07/22/17 12:19 97.6 87 18 158/81 (106) 97 07/22/17 07:25 98.1 71 18 143/65 (91) 97 07/22/17 04:04 173/84 (113) 07/22/17 04:00 80 07/22/17 03:59 98.3 83 18 167/80 (109) 96 07/22/17 01:55 98.4 69 18 135/63 (87) 95 07/22/17 01:01 70 07/21/17 20:42 97 21 07/21/17 20:04 92 07/21/17 19:53 98.0 89 18 138/65 (89) 96 07/21/17 18:56 18 07/21/17 17:43 18 07/21/17 15:56 98.5 83 20 102/52 (69) 97 I/O 07/21/17 07/21/17 07/21/17 07/22/17 07/22/17 07/22/17 06:59 14:59 22:59 06:59 14:59 22:59 Intake Total 400 ml 500 ml Output Total 650 ml 2000 ml 850 ml Balance -650 ml 400 ml -2000 ml 500 ml -850 ml Intake Oral 300 ml 500 ml IV Total 100 ml Output Urine Total 650 ml 2000 ml 850 ml # Voids 1 Result Diagram: 07/22/17 0750 07/22/17 0750 Objective Remarks GENERAL: Well-nourished, well-developed pleasant elderly male patient in [facility]. SKIN: Warm and dry. No rash. CARDIOVASCULAR: Regular rate and rhythm. S1, S2 noted. No murmur appreciated. RESPIRATORY: No accessory muscle use. Clear to auscultation. Breath sounds equal bilaterally. GASTROINTESTINAL: Abdomen soft, non-tender, nondistended. Normoactive bowel sounds x4. MUSCULOSKELETAL: No obvious deformities. Extremities without clubbing, cyanosis , or edema. Lumbar surgical site clean with sutures and steri-strips, dressing CDI. NEUROLOGICAL: Awake and alert. No obvious cranial nerve deficits. Motor grossly within normal limits. Moving all extremities spontaneously. Normal speech. PSYCHIATRIC: Appropriate mood and affect; insight and judgment normal. Procedures none A/P Problem List: (1) Intractable back pain ICD Code: M54.9 - Dorsalgia, unspecified Status: Acute (2) Urinary retention ICD Code: R33.9 - Retention of urine, unspecified Status: Acute (3) Status post laminectomy ICD Code: Z98.890 - Other specified postprocedural states Status: Acute (4) Hypokalemia ICD Code: E87.6 - Hypokalemia Status: Acute Assessment and Plan 77-year-old male with history of chronic back pain, high grade spinal stenosis at L2-3, diabetes mellitus, hypertension, hyperlipidemia, bradycardia s/p pacemaker, prostate cancer s/p radiation, melanoma, presents with a 2 day history of intractable low back pain. The patient recently admitted 07/18-07/20, underwent lumbar laminectomy and fusion of L2-3 and L3-4 on 07/18/[address] Kirit Marti. He was discharged yesterday 07/20, however presented back to the ED today 07/21 with intractable back pain. Intractable Low Back Pain w/Radiculopathy: S/p lumbar laminectomy/fusion on 07/18. Discharged on norco however pain uncontrolled. No new injury/fall. Much improved on Percocet, IV Dilaudid, IV steroids and Neurontin -Consulted orthopedics -Continue pain control with Percocet prn and IV dilaudid prn breakthrough pain -Consulted PT -Monitor neuro checks Urinary Retention: patient unable to urinate upon arrival, suspect secondary to intractable pain, Romero placed in the ED. -Romero catheter discontinued -monitor output Hypokalemia: K 2.9 upon arrival, suspect secondary to patient's diuretics -given po and IV KCl replacement -repeat BMP thousand 3.3. Extra 40 mg by mouth potassium 1 -increased patient's KCl dosing to 20meq daily Constipation: patient reports no BM since 07/18 -continue boaz-colace 1tab po bid -give Miralax x1 now -monitor for BM -constipation protocol meds prn Diabetes Mellitus: chronic, stable -continue patient's metformin HTN/HLD: chronic -continue patient's statin and lasix -monitor BP, adjust antihypertensives as needed GERD: chronic -continue patient's PPI Alcohol Use: chronic, last drink 1 week ago, does not appear to be in withdrawal -counseled on cessation -[facility] protocol -continue thiamine/folate/MV DVT Prophylaxis: teds/SCDs Discharge Planning Discharge patient to home with home care PT and visiting nurse Condition on discharge: Improved Regular Diet as tolerated Ad Denae activity no driving Rx written: Percocet, prednisone and Neurontin Follow-up with primary care physician and orthopedic surgery Justin Gamez MD Jul 22, 2017 13:19
--- NOTE | 2017-07-22 13:21 | HHI.FF ---
Face to Face Verification Diagnosis: (1) Intractable back pain (2) Lumbar spinal stenosis (3) Lumbar spine instability (4) DM (diabetes mellitus) (5) Status post laminectomy Physical Therapy Order: Evaluate and Treat, Improve ambulation, Strength and gait training Home Health Nursing Order: Medical education Signs/symptoms of disease process Nursing assessment with vital signs I have seen patient Donny Gorman on 07/22/17. My clinical findings support the need for the requested home health care services because: Ltd mobility - disease progression Deconditioned w/ increased weakness Limited ability to care for self High risk of falls I certify that my clinical findings support that this patient is homebound because: Post-op weakness Unsteady gait/balance Unsafe to leave home unassisted Marissa Keenan PA-C Jul 22, 2017 13:21
[2017-07-22] MEDS ORDERED: POTASSIUM CHLORIDE 20 MEQ CONTROLLED RELEASE TAB PO ONE (13:30)
[2017-07-22] MEDS ORDERED: POTA10CA PO (16:14)
[2017-07-22] MEDS ORDERED: NEUR300C PO (16:18)
[2017-07-22] MEDS ORDERED: PRED10 PO (16:18)
[2017-07-22] MEDS ORDERED: PERC10TA27 PO (16:18)
== END 2017-07-22 17:27 | disposition home or self-care (01) ==
LOC: NEPE 04:46 → NEDA 07:20 → NEPHCDU 10:39
PROVIDERS: ADMIT Internal Medicine; ATTEND Internal Medicine
DX: M54.9 Dorsalgia, unspecified (principal); R33.9 Retention of urine, unspecified; E87.6 Hypokalemia; Z98.890 Other specified postprocedural states; M48.061 Spinal stenosis, lumbar region without neurogenic claudication; M54.16 Radiculopathy, lumbar region; M53.2X6 Spinal instabilities, lumbar region; K59.00 Constipation, unspecified; I10 Essential (primary) hypertension; R00.1 Bradycardia, unspecified; E11.9 Type 2 diabetes mellitus without complications; E78.00 Pure hypercholesterolemia, unspecified; G89.29 Other chronic pain; K21.9 Gastro-esophageal reflux disease without esophagitis; F41.9 Anxiety disorder, unspecified; N40.0 Benign prostatic hyperplasia without lower urinary tract symptoms; M19.90 Unspecified osteoarthritis, unspecified site; Z79.899 Other long term (current) drug therapy; Z79.84 Long term (current) use of oral hypoglycemic drugs; Z95.0 Presence of cardiac pacemaker; Z85.46 Personal history of malignant neoplasm of prostate; Z92.3 Personal history of irradiation; Z85.820 Personal history of malignant melanoma of skin; Z98.1 Arthrodesis status
CPT/HCPCS: 51702; 80048; 81001; 82948; 83735; 84443; 85025; 85610; 96365; 96366; 96372; 96375; 96376; 97162; 99285; G0378; G8987; G8988; J1100; J1170; J1630; J1815; J2405; J3480